=== PATIENT | male | born 1950 | race Caucasian/White ===

== ENCOUNTER 2021-01-29 19:40 | Emergency (ER) | payer MEDICARE, OTHER ==
[2021-01-29] MEDS ORDERED: Sodium Chloride 0.9% 10 ML Syringe FLUSH PRN (19:58)
--- NOTE | 2021-01-29 20:09 | EDM.PDOC ---
ED HPI GENERAL MEDICAL PROBLEM - General Chief Complaint: Cardiovascular Problem Stated Complaint: IRREGULAR HEART BEAT Time Seen by Provider: 01/29/21 19:51 Source of Information: Reports: Patient, RN Notes Reviewed History Limitations: Reports: No Limitations - History of Present Illness INITIAL COMMENTS - FREE TEXT/NARRATIVE: Patient is a 70-year-old male who presents to the ER for the evaluation of an irregular heartbeat. Patient states he was out at the [employer], earlier today, he notes that it was fairly warm out but he was drinking an appropriate amount of water as he states he did go to the bathroom quite a few times throughout the day. For the last 8 or 9 holes however he states that he felt very fatigued, just felt like his heart was beating irregularly. Does have a history of A. fib, is on blood thinners, and other medications to regulate the heartbeat. Notes that his last visit with his vamper went well. Patient is not from this area. He states that he is supposed to take Cardizem on as- needed basis every 6 hours when he feels his heart is beating irregularly. He does state that he forgot his Cardizem at home however. So he is without this at this time. He is not having any chest pain, no shortness of breath, no nausea/vomiting/diarrhea, no cough. But he states he has some laryngitis, and is worried about possible strep throat as he states he has been around people that he was told was positive for strep throat. States that his throat is a little bit scratchy and somewhat painful at times to swallow however he is not having any swallowing difficulties. - Related Data Allergies Allergy/AdvReac Type Severity Reaction Status Date / Time No Known Allergies Allergy Verified 01/29/21 19:50 Home Meds: Home Meds Dofetilide 250 mcg PO BID 01/29/21 [History] Rivaroxaban [Xarelto] 20 mg PO DAILY 01/29/21 [History] Tolterodine Tartrate [Detrol LA] 4 mg PO DAILY 01/29/21 [History] buPROPion HCL [Wellbutrin Xl] 150 mg PO DAILY 01/29/21 [History] dilTIAZem HCL [Cardizem] 30 mg PO Q6H PRN #30 tablet 01/29/21 [Rx] Past Medical History Cardiovascular History: Reports: Afib Respiratory History: Reports: COPD Psychiatric History: Reports: Depression Endocrine/Metabolic History: Reports: Obesity/BMI 30+ Hematologic History: Reports: Anticoagulation Therapy - Past Surgical History Cardiovascular Surgical History: Reports: Cardiac Ablation Musculoskeletal Surgical History: Reports: Arthroscopic Knee Social & Family History - Tobacco Use Tobacco Use Status *Q: Never Tobacco User - Caffeine Use Caffeine Use: Reports: Coffee - Recreational Drug Use Recreational Drug Use: No ED ROS GENERAL - Review of Systems Review Of Systems: Comprehensive ROS is negative, except as noted in HPI. ED EXAM, GENERAL - Physical Exam Exam: See Below Exam Limited By: No Limitations General Appearance: Alert, WD/WN, No Apparent Distress Throat/Mouth: Normal Inspection, Normal Lips, Normal Teeth, Normal Gums, Normal Oropharynx, Normal Voice, No Airway Compromise Head: Atraumatic, Normocephalic Neck: Normal Inspection, Supple, Non-Tender, Full Range of Motion Respiratory/Chest: No Respiratory Distress, Lungs Clear, Normal Breath Sounds, No Accessory Muscle Use, Chest Non-Tender Cardiovascular: Normal Peripheral Pulses, Regular Rate, Rhythm, No Edema Peripheral Pulses: 2+: Radial (L), Radial (R) Extremities: Normal Inspection, Normal Capillary Refill Neurological: Alert, Oriented, Normal Cognition, No Motor/Sensory Deficits Psychiatric: Normal Affect, Normal Mood Skin Exam: Warm, Dry, Intact, Normal Color, No Rash #1 Interpretation EKG Date: 01/29/21 Time: 19:45 Rhythm: NSR Rate (Beats/Min): 73 Willard: Normal P-Wave: Present QRS: Normal ST-T: Normal QT: Normal Comparison: NA - No Prior EKG EKG Interpretation Comments: No obvious ischemia or acute ST changes noted, reviewed by myself and Dr. Keen. Course - Vital Signs Last Recorded V/S: Last Vital Signs Temp 97.8 F 01/29/21 19:44 Pulse 74 01/29/21 19:44 Resp 18 01/29/21 19:44 BP 131/83 01/29/21 19:44 Pulse Ox 97 01/29/21 19:44 - Orders/Labs/Meds Orders: Active Orders 24 hr Category Date Time Status Peripheral IV Insertion Adult [OM.PC] Routine Oth 01/29/21 19:58 Ordered Labs: Laboratory Tests 01/29/21 01/29/21 01/29/21 Range/Units 19:45 19:45 19:45 WBC 8.28 (4.23-9.07) K/mm3 RBC 4.54 L (4.63-6.08) M/mm3 Hgb 14.3 (13.7-17.5) gm/dl Hct 43.3 (40.1-51.0) % MCV 95.4 H (79.0-92.2) fl MCH 31.5 (25.7-32.2) pg MCHC 33.0 (32.2-35.5) g/dl RDW Std Deviation 44.3 H (35.1-43.9) fL Plt Count 214 (163-337) K/mm3 MPV 8.9 L (9.4-12.3) fl Neut % (Auto) 72.2 H (34.0-67.9) % Lymph % (Auto) 15.9 L (21.8-53.1) % Greer % (Auto) 8.9 (5.3-12.2) % Eos % (Auto) 2.4 (0.8-7.0) Baso % (Auto) 0.5 (0.1-1.2) % Neut # (Auto) 5.97 H (1.78-5.38) K/mm3 Lymph # (Auto) 1.32 (1.32-3.57) K/mm3 Greer # (Auto) 0.74 (0.30-0.82) K/mm3 Eos # (Auto) 0.20 (0.04-0.54) K/mm3 Baso # (Auto) 0.04 (0.01-0.08) K/mm3 Sodium 140 (136-145) mEq/L Potassium 4.0 (3.5-5.1) mEq/L Chloride 105 (98-107) mEq/L Carbon Dioxide 27 (21-32) mEq/L Anion Gap 12.0 (5-15) BUN 25 H (7-18) mg/dL Creatinine 1.0 (0.7-1.3) mg/dL Est Cr Clr Drug Dosing 75.44 mL/min Estimated GFR (MDRD) > 60 (>60) mL/min BUN/Creatinine Ratio 25.0 H (14-18) Glucose 112 H (70-99) mg/dL Calcium 9.4 (8.5-10.1) mg/dL Magnesium 2.1 (1.8-2.4) mg/dL Total Bilirubin 0.6 (0.2-1.0) mg/dL AST 20 (15-37) U/L ALT 30 (16-63) U/L Alkaline Phosphatase 61 (46-116) U/L Troponin I < 0.017 (0.00-0.056) ng/mL NT-Pro-B Natriuret Pep 229 H (0-125) pg/mL Total Protein 7.9 (6.4-8.2) g/dl Albumin 4.1 (3.4-5.0) g/dl Globulin 3.8 gm/dL Albumin/Globulin Ratio 1.1 (1-2) Group A Strep (PCR) (NOT DETECT) 01/29/21 Range/Units 20:05 WBC (4.23-9.07) K/mm3 RBC (4.63-6.08) M/mm3 Hgb (13.7-17.5) gm/dl Hct (40.1-51.0) % MCV (79.0-92.2) fl MCH (25.7-32.2) pg MCHC (32.2-35.5) g/dl RDW Std Deviation (35.1-43.9) fL Plt Count (163-337) K/mm3 MPV (9.4-12.3) fl Neut % (Auto) (34.0-67.9) % Lymph % (Auto) (21.8-53.1) % Greer % (Auto) (5.3-12.2) % Eos % (Auto) (0.8-7.0) Baso % (Auto) (0.1-1.2) % Neut # (Auto) (1.78-5.38) K/mm3 Lymph # (Auto) (1.32-3.57) K/mm3 Greer # (Auto) (0.30-0.82) K/mm3 Eos # (Auto) (0.04-0.54) K/mm3 Baso # (Auto) (0.01-0.08) K/mm3 Sodium (136-145) mEq/L Potassium (3.5-5.1) mEq/L Chloride (98-107) mEq/L Carbon Dioxide (21-32) mEq/L Anion Gap (5-15) BUN (7-18) mg/dL Creatinine (0.7-1.3) mg/dL Est Cr Clr Drug Dosing mL/min Estimated GFR (MDRD) (>60) mL/min BUN/Creatinine Ratio (14-18) Glucose (70-99) mg/dL Calcium (8.5-10.1) mg/dL Magnesium (1.8-2.4) mg/dL Total Bilirubin (0.2-1.0) mg/dL AST (15-37) U/L ALT (16-63) U/L Alkaline Phosphatase (46-116) U/L Troponin I (0.00-0.056) ng/mL NT-Pro-B Natriuret Pep (0-125) pg/mL Total Protein (6.4-8.2) g/dl Albumin (3.4-5.0) g/dl Globulin gm/dL Albumin/Globulin Ratio (1-2) Group A Strep (PCR) Not detected (NOT DETECT) Meds: Medications Discontinued Medications Generic Name Dose Route Start Last Admin Trade Name Freq PRN Reason Stop Dose Admin Sodium Chloride 10 ml 01/29/21 19:58 01/29/21 20:03 Sodium Chloride 0.9% 10 Ml Syringe FLUSH 10 ml ASDIRECTED PRN Administration Keep Vein Open - Re-Assessments/Exams Free Text/Narrative Re-Assessment/Exam: 01/29/21 20:07 Patient presents to the ED for the evaluation of his irregular heartbeat. EKG at time of triage does demonstrate normal sinus rhythm. The tong setter does demonstrate few PVCs, but no couplets or triplets or anything worrisome. Patient states he is feeling much better after he stopped golfing and was resting at home. We will go ahead and get some basic labs as well for evaluation. Plan to send the patient home with a prescription for Cardizem as he is directed to take from his vamper since he did leave this at home inadvertently before his trip. 01/29/21 20:43 The patient's labs are all unremarkable for today's purposes, troponin is undetectably low. Strep screen was negative. We will go ahead and discharge patient home with general recommendations and a prescription for the Cardizem. Departure - Departure Time of Disposition: 20:44 Disposition: Home, Self-Care 01 Condition: Good Clinical Impression: History of irregular heartbeat, Laryngitis Prescriptions: dilTIAZem HCL [Cardizem] 30 mg PO Q6H PRN #30 tablet PRN Reason: irregular heart beat Instructions: Atrial Fibrillation, [id number] Referrals: PCP,Not In Area [Primary Care Provider] - Forms: ED Department Discharge Additional Instructions: You were evaluated in the ER today for the feelings of irregular heartbeat earlier today. EKG, and other laboratory evaluation is unremarkable for today's purposes. Your strep screen was also negative. Please continue all other previous medications as prescribed from your regular provider. You have been given a prescription for Cardizem, 30 mg to take every 6 hours as needed for feelings of irregular heartbeat. As you stated this was a medication that your regular provider has prescribed, but you left at your house before your trip. This medication was electronically sent to the [place] pharmacy located in the [facility]; Address is [address] [place] [address]. Do not hesitate to return to the ER at any time if symptoms change or worsen. Sepsis Event Note (ED) - Evaluation Sepsis Screening Result: No Definite Risk - Focused Exam Vital Signs: Vital Signs Temp Pulse Resp BP Pulse Ox 01/29/21 19:44 97.8 F 74 18 131/83 97 - My Orders Last 24 Hours: My Active Orders 01/29/21 19:58 Peripheral IV Insertion Adult [OM.PC] Routine - Assessment/Plan Last 24 Hours: My Active Orders 01/29/21 19:58 Peripheral IV Insertion Adult [OM.PC] Routine
== END 2021-01-29 20:58 | disposition home or self-care (01) ==
LOC: JD.ED 19:40
DX: J04.0 Acute laryngitis (principal); I48.91 Unspecified atrial fibrillation; J44.9 Chronic obstructive pulmonary disease, unspecified; E66.9 Obesity, unspecified; Z79.01 Long term (current) use of anticoagulants; Z68.30 Body mass index [BMI] 30.0-30.9, adult; Z20.822 Contact with and (suspected) exposure to COVID-19; Z86.79 Personal history of other diseases of the circulatory system
CPT/HCPCS: 36415; 80053; 83735; 83880; 84484; 85025; 87651-QW; 93010; 99284; 99285-25